=== PATIENT | female | born 1950 | race Caucasian/White ===

== ENCOUNTER 2017-06-09 12:55 | Emergency (ER) | payer SELFPAY ==
[2017-06-09 13:27] VITALS: BP 205/91; PULSE 68; RESP 20; TEMP 97.2; O2SAT 92
--- NOTE | 2017-06-09 13:41 | EDPHY ---
H & P Stated Complaint: needs refill of HTN left in [facility]- Prestarium (RIKKI inhin) without x3 days Time Seen by Provider: 06/09/17 13:36 HPI/ROS: CHIEF COMPLAINT: Requesting refill of antihypertensive medication HISTORY OF PRESENT ILLNESS: The patient presents the ED requesting a refill of her antihypertensive medication. The patient had been taking a RIKKI-inhibitor. The patient has been taking a medicine called Prestarium which is verified to be in RIKKI-inhibitor. She denies any chest pain or shortness of breath. She denies any headache, numbness, abdominal pain or acute complaints. REVIEW OF SYSTEMS: A comprehensive 10 point review of systems is otherwise negative aside from elements mentioned in the history of present illness. Source: Patient Exam Limitations: No limitations - Personal History Current Tetanus Diphtheria and Acellular Pertussis (TDAP): Unsure - Medical/Surgical History Hx Asthma: No Hx Chronic Respiratory Disease: No Hx Diabetes: No Hx Cardiac Disease: No Hx Renal Disease: No Hx Cirrhosis: No Hx Alcoholism: No Hx HIV/AIDS: No Hx Splenectomy or Spleen Trauma: No Other PMH: htn, appendectomy, - Social History Smoking Status: Never smoked - Physical Exam Exam: General Appearance: Alert, no distress Eyes: Pupils equal and round no pallor or injection ENT, Mouth: Mucous membranes moist Respiratory: There are no retractions, lungs are clear to auscultation Cardiovascular: Regular rate and rhythm Gastrointestinal: Abdomen is soft and nontender, no masses, bowel sounds normal Neurological: 5/5 strength all 4 extremities Skin: Warm and dry, no rashes Musculoskeletal: Neck is supple nontender Extremities: symmetrical, full range of motion Constitutional: Initial Vital Signs Temperature (C) 36.2 C 06/09/17 13:23 Heart Rate 68 06/09/17 13:23 Respiratory Rate 20 06/09/17 13:23 Blood Pressure 205/91 H 06/09/17 13:23 O2 Sat (%) 92 06/09/17 13:23 O2 Delivery Mode Room Air Allergies/Adverse Reactions: No Known Allergies Allergy (Unverified 06/09/17 13:23) Home Medications: Medication Instructions Recorded Lisinopril 10 mg PO DAILY #21 tablet 06/09/17 Prestarium 06/09/17 Medical Decision Making ED Course/Re-evaluation: The patient will be written for lisinopril 10 mg as a starting dose. She is advised to return to the emergency department for any chest pain, shortness of breath, persistently elevated blood pressure or other concerns. She will follow up with her primary care provider for a blood pressure recheck upon returning to [place]. Departure - Departure Disposition: Home, Routine, Self-Care Clinical Impression: Hypertension Condition: Good Instructions: Hypertension (ED) Additional Instructions: 1. Please return to the ED for markedly elevated blood pressure, chest pain, shortness of breath or other concerns. 2. Begin lisinopril as prescribed for next 14 days. 3. Resume your regular medications when returning to [place]. Referrals: ,[facility] [Other] - As per Instructions Prescriptions: Lisinopril 10 mg PO DAILY #21 tablet
== END 2017-06-09 13:49 | disposition home or self-care (01) ==
DX: I10 Essential (primary) hypertension (principal)